=== PATIENT | female | born 1940 | race Caucasian/White ===

== ENCOUNTER 2020-06-02 13:24 | Emergency (ER) | payer OTHER ==
[2020-06-02] MEDS ORDERED: ONDANSETRON 4 MG (ODT) TAB ONE (14:13)
[2020-06-02] MEDS ORDERED: MORPHINE 4 MG/ML SYR ONE ×3 (14:13→22:50)
--- NOTE | 2020-06-02 14:28 | ER ---
Nurse's Notes [facility] Name: Michelle Nam Age: 79 yrs Sex: Female : 1940 Arrival Date: 06/02/2020 Time: 13:31 Bed 23 Private MD: Diagnosis: Transverse fracture of proximal left Tibia Presentation: 06/02 13:32 Chief complaint: EMS states: Yesterday around 3pm patient tried to get into a golf cart zb applied pressure on her left leg and felt a " crinkle" and pain. patient hasn't been able to bare weight on it since family decided to call EMS. blood pressure elevated 182/110 and pulse ox 93 on room Air. Coronavirus screen: At this time, the client does not indicate any symptoms associated with coronavirus-19. Ebola Screen: No symptoms or risks identified at this time. Initial Sepsis Screen: Does the patient meet any 2 criteria? No. Patient's initial sepsis screen is negative. Does the patient have a suspected source of infection? No. Patient's initial sepsis screen is negative. Risk Assessment: Do you want to hurt yourself or someone else? Patient reports no desire to harm self or others. Onset of symptoms was June 01, 2020. 13:32 Acuity: NOEMI 3 zb 13:32 Method Of Arrival: EMS: [facility] zb Triage Assessment: 13:48 General: Appears in no apparent distress. uncomfortable, Behavior is calm, cooperative, zb appropriate for age. Pain: Complains of pain in left knee and left lacey Pain does not radiate. Pain currently is 8 out of 10 on a pain scale. Quality of pain is described as aching, tender, Pain began 1 day ago. Is continuous, Aggravated by increased activity, repositioning, weight bearing. EENT: No signs and/or symptoms were reported regarding the EENT system. Neuro: Level of Consciousness is awake, alert, obeys commands, Oriented to person, place, time. Cardiovascular: Heart tones S1 S2 present Murmur present Patient's skin is warm and dry. Respiratory: Airway is patent Respiratory effort is even, unlabored, Respiratory pattern is regular, symmetrical, Breath sounds are clear bilaterally. Denies shortness of breath. GI: Abdomen is round non-distended, obese, Bowel sounds present X 4 quads. Abd is soft and non tender X 4 quads. Derm: Skin is intact, is healthy with good turgor, Skin is dry, Skin is normal, Bruising that is dark purple, green, yellow, on left knee and left lacey. Musculoskeletal: Circulation, motion, and sensation intact. Capillary refill < 3 seconds, in bilateral fingers. Range of motion: limited in left knee Swelling present in left knee and left lacey. Injury Description: Bruise sustained to left knee and left lacey. Historical: - Allergies: 13:48 No Known Allergies; zb - Home Meds: 13:48 trospium 60 mg oral cp24 1 cap once daily [Active]; isosorbide mononitrate 30 mg Oral zb Tb24 1 tab once daily [Active]; escitalopram oxalate 20 mg oral tab 1 tab once daily [Active]; metformin 750 mg Oral Tb24 1 tab once daily [Active]; metoprolol tartrate 100 mg Oral tab 1 tab once daily [Active]; losartan 25 mg oral tab 1 tab once daily [Active]; diltiazem HCl 360 mg Oral cp24 1 cap once daily [Active]; - PMHx: 13:48 CVA; Hypertension; Diabetes - NIDDM; zb - PSHx: 13:48 Cholecystectomy; Appendectomy; left knee surgery; back surgery; zb - Immunization history:: Adult Immunizations up to date. - Social history:: Smoking status: Patient denies any tobacco usage or history of. Screenin:51 Abuse screen: Denies threats or abuse. Denies injuries from another. Nutritional zb screening: No deficits noted. Tuberculosis screening: No symptoms or risk factors identified. Fall Risk Fall in past 12 months (25 points). No secondary diagnosis (0 pts). No IV (0 pts). Ambulatory Aid- None/Bed Rest/Nurse Assist (0 pts). Gait- Impaired (20 pts.). Mental Status- Oriented to own ability (0 pts). Total Jackson Fall Scale indicates High Risk Score (45 or more points). Fall prevention measures have been instituted. Side Rails Up X 2 Placed Close to Nursing Station Frequent Obs/Assessments Occuring As available patient and family educated on Fall Prevention Program and Strategies. Assessment: 15:07 Reassessment: Dianne Garrett daughter: [phone]. ca1 16:00 Reassessment: Patient appears in no apparent distress at this time. Patient and/or zb family updated on plan of care and expected duration. Pain level reassessed. Patient is alert, oriented x 3, equal unlabored respirations, skin warm/dry/pink. Left leg remains swollen and painful with movement. 17:00 Reassessment: Patient appears in no apparent distress at this time. Patient and/or zb family updated on plan of care and expected duration. Pain level reassessed. Patient is alert, oriented x 3, equal unlabored respirations, skin warm/dry/pink. pain decreased to 6/10 with medication. patient resting in bed conformably notified of plan of care. 18:00 Reassessment: Patient appears in no apparent distress at this time. Patient and/or zb family updated on plan of care and expected duration. Pain level reassessed. Patient is alert, oriented x 3, equal unlabored respirations, skin warm/dry/pink. patient given more pain medications. IV fluids infusing. 19:00 Reassessment: Patient appears in no apparent distress at this time. Patient and/or zb family updated on plan of care and expected duration. Pain level reassessed. Patient is alert, oriented x 3, equal unlabored respirations, skin warm/dry/pink. patient reposition and cleaned up. IV continues to infuse. discussed POC. 20:00 Reassessment: Patient appears in no apparent distress at this time. Patient and/or zb family updated on plan of care and expected duration. Pain level reassessed. Patient is alert, oriented x 3, equal unlabored respirations, skin warm/dry/pink. IV continues to infuse. knee immobilizer remains in place. 20:58 Reassessment: Patient appears in no apparent distress at this time. Patient and/or zb family updated on plan of care and expected duration. Pain level reassessed. Patient is alert, oriented x 3, equal unlabored respirations, skin warm/dry/pink. notified ecp of patient blood pressure. per ecp patient given home blood pressure medications. 22:44 Reassessment: report given to ambulance. Vital Signs: 13:30 BP 158 / 91; Pulse 95; Resp 16; Pulse Ox 94% ; zb 13:32 BP 158 / 94; Pulse 98; Resp 18; Temp 99.2; Pulse Ox 93% on R/A; Weight 81.65 kg; Height zb 5 ft. 4 in. (162.56 cm); Pain 8/10; 14:00 BP 114 / 91; Pulse 81; Resp 16; Pulse Ox 98% on R/A; kj1 15:00 BP 156 / 103; Pulse 97; Resp 16; Pulse Ox 94% on R/A; zb 17:00 BP 125 / 97; Pulse 99; Resp 16; Pulse Ox 93% on R/A; zb 18:00 BP 153 / 71; Pulse 96; Resp 18; Pulse Ox 93% on R/A; zb 19:00 BP 161 / 117; Pulse 107; Resp 92; Pulse Ox 95% on R/A; ss 20:00 BP 171 / 111; Pulse 108; Resp 18; Pulse Ox 91% ; ss 20:55 BP 165 / 71; Pulse 109; Resp 15; Pulse Ox 90% on R/A; zb 22:43 BP 144 / 74; Pulse 103; Resp 16; Pulse Ox 100% 2 lpm ; zb 13:32 Body Mass Index 30.90 (81.65 kg, 162.56 cm) zb ED Course: 13:31 Patient arrived in ED. zb 13:33 Moody Moran NP is PHCP. pm1 13:33 Addy Delgado MD is Attending Physician. pm1 13:38 Triage completed. zb 13:51 Patient has correct armband on for positive identification. Pulse ox on. NIBP on. Door zb closed. Noise minimized. Warm blanket given. Pillow given. 13:52 Ruthann Nam, RN is Primary Nurse. zb 13:52 Arm band placed on. zb 14:16 Knee Left 3 View XRAY In Process Unspecified. EDMS 14:16 Tib Fib Left XRAY In Process Unspecified. EDMS 14:20 Initial lab(s) drawn, by me, sent to lab. Inserted saline lock: 22 gauge in right kj1 antecubital area, using aseptic technique. Blood collected. 14:36 transfer initiated a Jeannie from the [facility]. eb 14:42 Jeannie from the [facility] called to decline the patient in transfer due eb to them being at capacity. 14:56 initiated a transfer with Kristine from the [facility]. eb 15:48 Kristine Donovan from the [facility] called to decline the patient eb in transfer their facility is on diversion. 17:12 attempted to initiate a transfer with [facility]/ They are unable to take the patient eb at this time and will have to decline the transfer. 17:25 attempted to initiate a transfer with Maura from the [facility]/ they eb are at capacity and will have to decline the patient in transfer. 18:05 re- initiated the transfer with Jeannie from [facility] after Dr. Steven gregg spoke with Dr. Scott the of the hospital. 18:12 Jeannie from the [facility] called to let us know the plan is to keep the eb patient here in our ER while the patient is on a wait list for [facility]. 18:19 connected the orthopedic air route traffic controller for [facility] with Moody Faustin for patient eb transfer consultation. 18:30 The hospitalist from [facility] was connected with Moody Moran NP, provider of tt3 pt for consult. 19:13 Jeannie Lin called back from [facility] with admin approval. The pt is going to bed tt3 [id number]. The accepting physician is Dr. Eli and accepted at 18:36. Nurse to call report to . Facesheet faxed to per Jeannie's request. 20:42 No provider procedures requiring assistance completed. Patient transferred, IV remains ss in place. Administered Medications: 13:53 Drug: Ondansetron (Zofran) 4 mg Route: PO; zb 14:30 Follow up: Response: No adverse reaction zb 14:14 Not Given (Physician Discretion): morphine 4 mg IM once; RASS on ADMIN: Combtv4, Very zb Agttd3, Agttd2, Rstlss1, AlertClm0, Drwsy-1, Lt Sdtn-2, Mod Sdtn-3, Dp Sdtn-4, UnArsble-5 15:09 Drug: morphine 4 mg Route: IVP; Site: right antecubital; zb 17:00 Follow up: Response: No adverse reaction; Pain is decreased; RASS: Alert and Calm (0) zb 18:07 Drug: NS 0.9% 1000 ml Route: IV; Rate: 100 ml/hr; Site: right antecubital; zb 22:45 Follow up: Response: No adverse reaction; IV Status: Infusion continued upon transfer; zb IV Intake: 300ml 18:08 Drug: morphine 4 mg {Note: RASS 0.} Route: IVP; Site: right antecubital; zb 18:30 Follow up: Response: No adverse reaction; Pain is decreased; RASS: Alert and Calm (0) zb 20:53 Drug: fentaNYL (PF) 25 mcg Route: IVP; Site: right antecubital; ss 21:30 Follow up: Response: No adverse reaction; Pain is decreased; RASS: Alert and Calm (0) zb 22:42 Drug: morphine 4 mg Route: IVP; Site: right antecubital; zb 22:44 Follow up: Response: Medication administered at discharge.; RASS: Alert and Calm (0) zb Intake: 22:45 IV: 300ml; Total: 300ml. zb Outcome: 14:27 ER care complete, transfer ordered by . pm1 20:33 Transferred by ground EMS to [facility]. ss 20:33 Condition: stable 20:33 Instructed on the need for transfer. 22:44 Patient left the ED. zb Signatures: Dispatcher [employer] Shannan Esteban RN RN ss Moody Moran, KETTLE COORDINATOR KETTLE COORDINATOR pm1 Mallory Lovelace Cheryl, RN RN ca1 Jackson, Kandis kj1 Artemio Patterson3 Ruthann Nam RN RN zkylah
--- NOTE | 2020-06-02 14:28 | EDPHYS ---
Physician Documentation [facility] Name: Michelle Nam Age: 79 yrs Sex: Female : 1940 Arrival Date: 06/02/2020 Time: 13:31 Bed 23 Private MD: ED Physician Addy Delgado HPI: 06/02 14:12 This 79 yrs old Female presents to ER via EMS with complaints of Knee Injury. pm1 14:12 The patient presents with pain, that is acute. The complaints affect the left knee. pm1 Context: The problem was sustained outdoors, resulted from stepping up, the patient is not able to bear weight, Problem is a result from a previous injury: Patient with left knee injury at 12 years old and laproscopic knee surgery as an adult. Patient reports history of left chronic knee pain. Left knee is bone on bone Patient did not fall. Onset: The symptoms/episode began/occurred just prior to arrival. Modifying factors: The symptoms are alleviated by nothing. Associated signs and symptoms: Pertinent negatives Fall. No headache, head injury, neck pain, LOC. Treatment prior to arrival includes: no previous treatment. Severity of symptoms: in the emergency department the symptoms are unchanged. The patient has not experienced similar symptoms in the past. Patient with CVA about five years ago resulting in left sided weakness. Left arm with weakness lifting objects and left foot with drop. Patient uses left leg for weight bearing. Historical: - Allergies: 13:48 No Known Allergies; zb - Home Meds: 13:48 trospium 60 mg oral cp24 1 cap once daily [Active]; isosorbide mononitrate 30 mg Oral zb Tb24 1 tab once daily [Active]; escitalopram oxalate 20 mg oral tab 1 tab once daily [Active]; metformin 750 mg Oral Tb24 1 tab once daily [Active]; metoprolol tartrate 100 mg Oral tab 1 tab once daily [Active]; losartan 25 mg oral tab 1 tab once daily [Active]; diltiazem HCl 360 mg Oral cp24 1 cap once daily [Active]; - PMHx: 13:48 CVA; Hypertension; Diabetes - NIDDM; zb - PSHx: 13:48 Cholecystectomy; Appendectomy; left knee surgery; back surgery; zb - Immunization history:: Adult Immunizations up to date. - Social history:: Smoking status: Patient denies any tobacco usage or history of. ROS: 14:12 Constitutional: Negative for fever, chills, and weight loss, Cardiovascular: Negative pm1 for chest pain, palpitations, and edema, Respiratory: Negative for shortness of breath, cough, wheezing, and pleuritic chest pain, Abdomen/GI: Negative for abdominal pain, nausea, vomiting, diarrhea, and constipation, Back: Negative for injury and pain. 14:12 Skin: Negative for injury, rash 14:12 Neuro: Negative for headache, weakness, numbness, tingling, and seizure. 14:12 MS/extremity: Positive for pain, tenderness, of the left upper lacey and left knee, Ecchymosis to left upper lacey, Negative for laceration, puncture. Exam: 14:12 Constitutional: This is a well developed, well nourished patient who is awake, alert, pm1 and in no acute distress. Head/Face: Normocephalic, atraumatic. Neck: Trachea midline, no thyromegaly or masses palpated, and no cervical lymphadenopathy. Supple, full range of motion without nuchal rigidity, or vertebral point tenderness. No Meningismus. 14:12 Cardiovascular: Exam negative for acute changes, Rate: normal, Rhythm: regular, Pulses: no pulse deficits are appreciated. 14:12 Respiratory: Exam negative for acute changes, respiratory distress, shortness of breath. 14:12 Skin: Appearance: normal except for affected area, ecchymosis, noted on the, left upper lacey. 14:12 Neuro: Orientation: is normal, Mentation: is normal, Sensation: is normal, no obvious pm1 gross deficits. Vital Signs: 13:30 BP 158 / 91; Pulse 95; Resp 16; Pulse Ox 94% ; zb 13:32 BP 158 / 94; Pulse 98; Resp 18; Temp 99.2; Pulse Ox 93% on R/A; Weight 81.65 kg; Height zb 5 ft. 4 in. (162.56 cm); Pain 8/10; 14:00 BP 114 / 91; Pulse 81; Resp 16; Pulse Ox 98% on R/A; kj1 15:00 BP 156 / 103; Pulse 97; Resp 16; Pulse Ox 94% on R/A; zb 17:00 BP 125 / 97; Pulse 99; Resp 16; Pulse Ox 93% on R/A; zb 18:00 BP 153 / 71; Pulse 96; Resp 18; Pulse Ox 93% on R/A; zb 19:00 BP 161 / 117; Pulse 107; Resp 92; Pulse Ox 95% on R/A; ss 20:00 BP 171 / 111; Pulse 108; Resp 18; Pulse Ox 91% ; ss 20:55 BP 165 / 71; Pulse 109; Resp 15; Pulse Ox 90% on R/A; zb 22:43 BP 144 / 74; Pulse 103; Resp 16; Pulse Ox 100% 2 lpm ; zb 13:32 Body Mass Index 30.90 (81.65 kg, 162.56 cm) zb MDM: 13:40 Patient medically screened. pm1 14:15 Data interpreted: Pulse oximetry: on room air is 98 %. Interpretation: normal. pm1 14:20 Counseling: I had a detailed discussion with the patient and/or guardian regarding: the pm1 historical points, exam findings, and any diagnostic results supporting the discharge/admit diagnosis, radiology results, the need to transfer to another facility, [facility] does not immediately have the required specialist, Orthopedics is not available. 14:55 ED course: Patient takes Plavix. No other anticoagulants. Last ate food 2100 yesterday. pm1 Cup of coffee this AM around 7. 15:32 Data reviewed: vital signs. pm1 16:25 ED course: Multiple facilities are at capacity and on diversion after initiating pm1 transfer request at 1427. Will attempt to keep patient here however no orthopedics environmental programs manager. 17:01 Physician consultation: Zeferino Gordillo MD was called at 16:31, was contacted at 17:01, pm1 regarding consult, patient's condition, No orthopedic environmental programs manager. Dr Gordillo returned our call but he recommended transfer for higher level of care. 18:24 Physician consultation: Victoriano Hill was contacted at 18:25, regarding consult, pm1 patient's condition, and will see patient at [facility]. 20:41 ED course: Patient did not take her blood pressure medications today and blood pressure pm1 is slowly trending upward. Will allow patient to take her home medications that she brought with her metoprolol 100 mg, losartan 25 mg, diltiazem 360mg. Patient will be NPO at midnight. 06/02 14:12 Order name: CBC with Diff pm1 06/02 14:12 Order name: CMP; Complete Time: 15:21 pm1 06/02 14:12 Order name: PT-INR; Complete Time: 14:43 pm1 06/02 14:12 Order name: Ptt, Activated; Complete Time: 14:43 pm1 06/02 14:12 Order name: CBC with Automated Diff; Complete Time: 14:43 EDMS 06/02 17:30 Order name: COVID-19 : Document "Date of Symptom Onset" if Symptomatic. zb 02 13:41 Order name: Knee Left 3 View XRAY; Complete Time: 15:21 pm1 06/02 13:41 Order name: Tib Fib Left XRAY; Complete Time: 15:21 pm1 06/02 18:34 Order name: SARS-COV-2 RT PCR; Complete Time: 18:35 EDMS 06/02 14:11 Order name: Knee Immobilizer; Complete Time: 18:59 pm1 06/02 14:12 Order name: NPO; Complete Time: 15:05 pm1 06/02 14:12 Order name: IV Saline Lock; Complete Time: 15:05 pm1 Administered Medications: 13:53 Drug: Ondansetron (Zofran) 4 mg Route: PO; zb 14:30 Follow up: Response: No adverse reaction zb 14:14 Not Given (Physician Discretion): morphine 4 mg IM once; RASS on ADMIN: Combtv4, Very zb Agttd3, Agttd2, Rstlss1, AlertClm0, Drwsy-1, Lt Sdtn-2, Mod Sdtn-3, Dp Sdtn-4, UnArsble-5 15:09 Drug: morphine 4 mg Route: IVP; Site: right antecubital; zb 17:00 Follow up: Response: No adverse reaction; Pain is decreased; RASS: Alert and Calm (0) zb 18:07 Drug: NS 0.9% 1000 ml Route: IV; Rate: 100 ml/hr; Site: right antecubital; zb 22:45 Follow up: Response: No adverse reaction; IV Status: Infusion continued upon transfer; zb IV Intake: 300ml 18:08 Drug: morphine 4 mg {Note: RASS 0.} Route: IVP; Site: right antecubital; zb 18:30 Follow up: Response: No adverse reaction; Pain is decreased; RASS: Alert and Calm (0) zb 20:53 Drug: fentaNYL (PF) 25 mcg Route: IVP; Site: right antecubital; ss 21:30 Follow up: Response: No adverse reaction; Pain is decreased; RASS: Alert and Calm (0) zb 22:42 Drug: morphine 4 mg Route: IVP; Site: right antecubital; zb 22:44 Follow up: Response: Medication administered at discharge.; RASS: Alert and Calm (0) zb Disposition: 06/03 16:55 Co-signature as Attending Physician, Addy Delgado MD. rn Disposition: 06/02/20 14:27 Transfer ordered to [facility]. Diagnosis is Transverse fracture of proximal left Tibia. - Reason for transfer: Specialty. - Accepting physician is Orthopedics. - Condition is Stable. - Problem is new. - Symptoms have improved. Signatures: Dispatcher [employer] EDND Zach Klein, WILMER PA [facility] Addy Delgado MD MD rn Smirch, Shelby, RN RN ss Marinas, Patrick, MESFIN AGRICULTURAL RESEARCH ENGINEER pm1 Ruthann Nam RN RN zb Corrections: (The following items were deleted from the chart) 06/02 15:22 14:27 06/02/2020 14:27 Transfer ordered to [facility]. pm1 Diagnosis is Transverse fracture of proximal left Tibia and Fibula. Reason for transfer: Specialty. Accepting physician is Dr Gaytan. Condition is Stable. Problem is new. Symptoms have improved. pm1 17:48 17:31 CORONAVIRUS ordered. EDND EDMS 22:44 15:22 06/02/2020 14:27 Transfer ordered to [facility]. zb Diagnosis is Transverse fracture of proximal left Tibia. Reason for transfer: Specialty. Accepting physician is [facility]opedic[facility]. Condition is Stable. Problem is new. Symptoms have improved. pm1
[2020-06-02 14:33] LABS: Absolute Lymphocytes (CBC) 1.9 K/uL (0.7-4.9); Basophils % 0.5 % (0-1.3); Hematocrit 35.1 % (36.0-45.0); Lymphocytes % 13.2 % (15.3-44.8); MPV 8.7 fL (7.6-11.3); RBC Red Blood Cell Count 3.97 M/uL (3.86-4.86)
[2020-06-02 14:36] LABS: Protime INR 1.09
[2020-06-02 14:48] LABS: Albumin 2.8 g/dL (3.4-5.0); Bilirubin Total 0.6 mg/dL (0.2-1.0); Potassium 3.6 mmol/L (3.5-5.1); Protein, Total 6.9 g/dL (6.4-8.2)
--- NOTE | 2020-06-02 15:11 | RAD REPORT ---
EXAM DESCRIPTION: RAD - Knee Left 3 View - 06/02/2020 2:17 pm CLINICAL HISTORY: PAIN, knee trauma COMPARISON: No comparisons FINDINGS: Transverse fracture is present through the metaphyseal portion of the proximal tibia. No f ibular fracture. There is no significant distraction, angulation or impaction at the fracture site. Joint effusion or hemarthrosis present. There is no fat fluid level identified in the joint space to indicate lipoma hemarthrosis. Patient has a baseline of severe left knee degenerative change. There is significant narrowing of the lateral compartment with large marginal spurs and a remodeled concave contour to the lateral tibial plateau. There is medial downward tilting of the medial tibial plateau. An acute fracture line is not seen and this is suspected to be chronic. Significant sized medial compartment spurs are present. Th ere are large spurs at the narrowed patellofemoral joint space. Significant contusion or edema changes are present around the knee joint and anterior tibia. No forei gn body. IMPRESSION: Transverse fracture of the proximal tibia. 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 Downward tilting of the medial tibial plateau is suspected to be chronic. An acute fracture line involving the tibial plateau is not seen.
--- NOTE | 2020-06-02 15:13 | RAD REPORT ---
EXAM DESCRIPTION: RAD - Tib Fib Left - 06/02/2020 2:17 pm CLINICAL HISTORY: Knee pain, trauma COMPARISON: No remote imaging FINDINGS: Fracture of the proximal tibia is detailed in the separate knee report. Degenerative lopez es of the knee joint also detailed had not report. No fibula fracture identified. The remainder of the tibia is intact. Patient has degenerative change at the tibiotalar joint space and minimally in the subtalar joint space. Large plantar spur is presen t. There is minimal spurring at the Achilles attachment. Contusion or edema changes are present in the fatty tissues of the leg extending from distal thigh to the ankle joint. No foreign body. IMPRESSION: Proximal left tibia fracture and advanced knee joint degenerative changes are present an d detailed in the separate and left knee report. Remainder of the exam shows degenerative change around the ankle joint with large plantar spur. Contusion or edema in the fatty tissues of the leg.
[2020-06-02] MEDS ORDERED: NA CHLORIDE 0.9% 1,000 ML ONE (18:21)
[2020-06-02] MEDS ORDERED: FENTANYL CITR 100 MCG/2 ML ONE (21:07)
[2020-06-02 23:03] VITALS: TEMP 99.2
[2020-06-02 23:24] VITALS: BP 144/74; O2SAT 100
== END 2020-06-02 22:44 | disposition short-term general hospital (02) ==
LOC: ER 13:24
PROC: 2W3RX1Z Immobilization of Left Lower Leg using Splint (ICD-10-PCS; principal; 2020-06-02)
DX: S82.222A Displaced transverse fracture of shaft of left tibia, initial encounter for closed fracture (principal); I69.354 Hemiplegia and hemiparesis following cerebral infarction affecting left non-dominant side; I10 Essential (primary) hypertension; E11.9 Type 2 diabetes mellitus without complications; Z79.01 Long term (current) use of anticoagulants; Z20.822 Contact with and (suspected) exposure to COVID-19
CPT/HCPCS: 96361; 85025; 36415; 85610; 85730; 80053; 73562; 73590; 96375; 96374; 99285; 29515; U0003; J3010; J7030